=== PATIENT | male | born 1975 | race Asian ===

== ENCOUNTER 2017-12-16 20:10 | Emergency (ER) | payer OTHER ==
--- NOTE | 2017-12-16 20:24 | ER Document Report ---
ED Medical Screen (RME) - General Chief Complaint: Nose Bleed Stated Complaint: NOSE INJURY Time Seen by Provider: 12/16/17 20:17 Mode of Arrival: Wheelchair Information source: Patient Notes: 41-year-old male presents after getting the need in the face with complaints of nosebleed from both nostrils has been bleeding for approximately 20 minutes now I have greeted and performed a rapid initial assessment of this patient. A comprehensive ED assessment and evaluation of the patient, analysis of test results and completion of the medical decision making process will be conducted by additional ED providers. PHYSICAL EXAMINATION: GENERAL: Well-appearing, well-nourished and in no acute distress. HEAD: Atraumatic, normocephalic. EYES: Pupils equal round extraocular movements intact, conjunctiva are normal. Ears: Right hemotympanum ENT: Blood noted in both nares Heart: Tachycardic NECK: Normal range of motion LUNGS: No respiratory distress Musculoskeletal: Normal range of motion NEUROLOGICAL: Normal speech, normal gait. PSYCH: Normal mood, normal affect. SKIN: Warm, Dry, normal turgor, no rashes or lesions noted. - Related Data Allergies/Adverse Reactions: No Known Allergies Allergy (Unverified 12/16/17 20:13) Past Medical History - Social History Chew tobacco use (# tins/day): Yes Frequency of alcohol use: Occasional - Past Medical History Cardiac Medical History: Reports: Hx Hypertension Renal/ Medical History: Denies: Hx Peritoneal Dialysis Psychiatric Medical History: Reports: Hx Depression Past Surgical History: Reports: Hx Oral Surgery Physical Exam - Vital signs Vitals: Temp Pulse Resp BP Pulse Ox 98.3 F 128 H 16 157/97 H 96 12/16/17 20:13 12/16/17 20:13 12/16/17 20:13 12/16/17 20:13 12/16/17 20:13 Course - Vital Signs Vital signs: Temp Pulse Resp BP Pulse Ox 98.3 F 128 H 16 157/97 H 96 12/16/17 20:13 12/16/17 20:13 12/16/17 20:13 12/16/17 20:13 12/16/17 20:13
[2017-12-16] MEDS ORDERED: OXYMETAZOLINE HCL 0.05% NASAL SPRAY 15 ML BOTTLE NASL ONE (20:29)
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
[2017-12-16 23:12] LABS: HEMATOCRIT 39.5 % (37.9-51.0); HEMOGLOBIN 13.5 g/dL (13.5-17.0); MEAN CORPUSCULAR HEMOGLOBIN 28.6 pg (27.0-33.4); MEAN CORPUSCULAR HGB CONC 34.1 g/dL (32.0-36.0); MEAN CORPUSCULAR VOLUME 84 fl (80-97); PLATELET COUNT 227 10^3/uL (150-450); RED BLOOD COUNT 4.72 10^6/uL (4.35-5.55); RED CELL DISTRIBUTION WIDTH 13.9 % (11.5-14.0); WHITE BLOOD COUNT 12.2 10^3/uL (4.0-10.5)
[2017-12-16] MEDS ORDERED: CEPHALEXIN 500 MG CAPSULE PO ONE (23:47)
[2017-12-17 00:40] VITALS: BP 128/87
== END 2017-12-17 00:38 | disposition home or self-care (01) ==
LOC: ER 20:10
PROC: 2Y41X5Z Packing of Nasal Region using Packing Material (ICD-10-PCS; principal; 2017-12-16)
DX: S09.93XA Unspecified injury of face, initial encounter (principal); R04.0 Epistaxis; F41.9 Anxiety disorder, unspecified; H92.03 Otalgia, bilateral; W51.XXXA Accidental striking against or bumped into by another person, initial encounter; Y93.79 Activity, other specified sports and athletics; F17.200 Nicotine dependence, unspecified, uncomplicated
CPT/HCPCS: 99285; 36415; 85027; 70450; 70486; 30905; J3490